=== PATIENT | female | born 1965 ===

== ENCOUNTER → 2022-07-24 09:18 | Outpatient (BNVA) | payer OTHER, SELFPAY | PROVIDERS: Visit Provider Student in an Organized Health Care Education/Training Program | DX: M79.7 Fibromyalgia (principal); L40.9 Psoriasis, unspecified; M17.0 Bilateral primary osteoarthritis of knee; M62.830 Muscle spasm of back | CPT/HCPCS: 99212 ==

== ENCOUNTER 2024-10-01 14:00 | Outpatient (AMB) | payer OTHER, SELFPAY ==
--- NOTE | 2024-10-01 14:02 | A.OFFVIS_ITS ---
Vital Signs 10/01/24 14:08 Height 5 ft 7 in Weight 244 lb 4.355 oz BMI 38.3 BP 118/70 Blood Pressure Location Lt brachial Position Sitting Pulse 95 Pulse Source Pulse Oximeter Pulse Oximetry (%) 95 Oxygen Delivery Method Room Air Intake Visit Reasons: FM/cm Intake Note: Patient presents for FM. She states she has days where she hurts a lot, but today she is feeling good. She states that she took Nabumetone in the past, but took it too much and felt it upset her stomach. Allergies acetaminophen [From Percocet] Adverse Reaction (Unknown, Unverified 10/01/24 14:10) Dizziness cat dander Adverse Reaction (Unknown, Unverified 10/01/24 14:10) Unknown ciclopirox Adverse Reaction (Unknown, Unverified 10/01/24 14:10) Itching oxycodone [From Percocet] Adverse Reaction (Unknown, Unverified 10/01/24 14:10) Dizziness nuts Adverse Reaction (Unknown, Uncoded 10/01/24 14:10) Unknown Medication List - Last Reconciled 10/01/24 by Juan Camp MD albuterol sulfate 90 mcg/actuation 2 puffs inhalation Q6H PRN aspirin (Adult Low Dose Aspirin) 81 mg PO DAILY cyclobenzaprine 5 mg PO BEDTIME dulaglutide (Trulicity) 4.5 mg subcut QWEEK duloxetine 60 mg PO BID ferrous sulfate 325 mg PO DAILY insulin aspart U-100 (Novolog FlexPen U-100 Insulin aspart) 1 sliding scale dose subcut USEASDIRECTD insulin degludec (Tresiba FlexTouch U-100 insulin) 5 units subcut DAILY levothyroxine 75 mcg PO DAILY lisinopril 2.5 mg PO DAILY loperamide (Imodium A-D) 2 mg PO Q6H PRN meclizine 25 mg PO TID PRN metformin 1,000 mg PO BID nabumetone 750 mg PO BID pantoprazole 40 mg PO DAILY pravastatin 40 mg PO DAILY pregabalin (Lyrica) 150 mg PO BID HPI Comments Details: This is a 59-year-old female with fibromyalgia who presents for follow-up. She states that she used to take nabumetone regularly in the past. It was initially prescribed by Dr. Gamino. She states that her PCP would not refill it to be taken regularly. She was advised by PCP to take it as needed. She continues to take Lyrica and duloxetine regularly [facility] Medical History Asthma Anxiety and depression Irritable bowel syndrome Fibromyalgia Osteoarthritis of both knees Hypothyroidism Carpal tunnel syndrome Chronic respiratory failure with hypoxia Obstructive sleep apnea Psoriasis EARLINE positive Type II diabetes mellitus with manifestations Benign essential hypertension Surgical History History of removal of both ovaries Hx of dilation and curettage H/O rhinoplasty S/P right knee arthroscopy Hx of tubal ligation Hx of colonoscopy Status post right breast lumpectomy History of esophagogastroduodenoscopy (EGD) Family History Mother Cataract Breast cancer Father Arthritis Diabetes Myocardial infarction Sister Diabetes Maternal Grandmother Dementia Maternal Grandfather FHx: cancer of prostate Paternal Grandmother Diabetes Paternal Grandfather Dementia Maternal Aunt Breast cancer Paternal Aunt Breast cancer Other ESRD (end stage renal disease) Social History Household Members Other:: lives alone Housing: Apartment 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) Alcohol intake: never Patient Tobacco Use Status: Never used Tobacco e-Cigarette/Vaping Use: Never Used Current occupational status: disabled Review of Systems Const Reports fatigue and Reports lethargy Eyes Denies dry eyes and Denies eye pain Musc Reports back pain, Reports arthralgias and Denies joint swelling Psych Reports abnormal sleep pattern and Reports anxiety Endo Reports fatigue Physical Exam Vital Signs: Last Vital Signs Pulse 95 10/01/24 14:08 BP 118/70 10/01/24 14:08 Pulse Ox 95 10/01/24 14:08 Oxygen Delivery Method Room Air 10/01/24 14:08 BMI result Body Mass Index 38.3 Const General: cooperative, comfortable, no acute distress and anxious Nutritional Appearance: obese Orientation/consciousness: patient oriented x3 HEENT Head: Yes normocephalic and Yes atraumatic GI Palpation (GI): Soft to palpation and nontender Neuro General: patient oriented x3 Extrem Other: Mild osteoarthritic changes of both hands with no active synovitis Multiple fibromyalgia tender points Assessment & Plan Assessment & Plan (1) Fibromyalgia: Code(s): M79.7 - Fibromyalgia Category: Medical Plan: This is a 59-year-old female with fibromyalgia who presents for follow-up. Discussed management of fibromyalgia with patient. Is a noninflammatory, non- autoimmune central afferent processing disorder leading to a diffuse pain syndrome. Patient follows up regularly with a psychotherapist. Advised patient to evaluation by a psychiatrist. Use CPAP regularly. Try to follow sleep hygiene practices. Patient would benefit from increased physical activity, patient has known bilateral knee osteoarthritis. I suggested aquatherapy/water aerobics. She is on duloxetine and Lyrica regularly prescribed by PCP Discussed with patient that nabumetone is generally not prescribed for fibromyalgia. It may be used sparingly as needed for osteoarthritic pain such as pain in her knees. Discussed with patient that I agree with her PCP that nabumetone is an NSAID and long-term use is associated with GI, cardio and nephrotoxicity. Should only be used sparingly Follow-up with PCP (2) Osteoarthritis of both knees: Code(s): M17.0 - Bilateral primary osteoarthritis of knee Category: Medical Qualifiers: Osteoarthritis type: primary Qualified Code(s): M17.0 - Bilateral primary osteoarthritis of knee Plan I spent 20 minutes reviewing patient's chart, evaluating patient, counseling patient and documenting in the chart Coding Level of Care Code Est Pt Level 3 (43277) Diagnoses Fibromyalgia M79.7 Primary osteoarthritis of both knees M17.0 Osteoarthritis type: primary
[2024-10-01 14:08] VITALS: BP 118/70; PULSE 95; O2SAT 95; BMI 38.3
== END 2024-10-01 14:36 | disposition home or self-care (01) ==
PROVIDERS: PCP Internal Medicine; Visit Provider Student in an Organized Health Care Education/Training Program
DX: M79.7 Fibromyalgia (principal); M17.0 Bilateral primary osteoarthritis of knee
CPT/HCPCS: 99213

== ENCOUNTER → 2024-10-01 14:00 | Outpatient (BNVA) | payer OTHER, SELFPAY | PROVIDERS: PCP Internal Medicine; Visit Provider Student in an Organized Health Care Education/Training Program | DX: M79.7 Fibromyalgia (principal); M17.0 Bilateral primary osteoarthritis of knee | CPT/HCPCS: 99212 ==